=== PATIENT | female | born 1970 | race Caucasian/White ===

== ENCOUNTER 2024-06-04 16:01 | Emergency (ER) | payer BC, SELFPAY ==
[2024-06-04 16:48] VITALS: BP 134/73; PULSE 72; RESP 16; TEMP 36.8; O2SAT 94; BMI 28.3
--- NOTE | 2024-06-04 16:49 | ED_ITS ---
HPI - Eye Problem General Chief complaint: Eye Problems Stated complaint: FB in L eye Time Seen by Provider: 06/04/24 19:38 Source: patient, RN notes reviewed and old records reviewed Mode of arrival: ambulatory Limitations: no limitations History of Present Illness ED Provider: Lamar POLLARD Narrative: Patient is a 54-year-old female presenting with complaint of FB sensation to L eye since Monday afternoon. Was blowing dust off her coffee cup when sxs began. Has flushed many times without relief. Painful to touch. No contact lens use. Denies changes in vision. chief complaint: eye pain and foreign body Onset (ago): day(s) Location: left eye Eye Symptoms: pain and foreign body sensation Treatments Prior to Arrival: irrigated eye Related Data Home Medications ?Medication ?Instructions ?Recorded ?Confirmed omeprazole magnesium 20 mg 20 mg PO DAILY 12/03/21 12/03/21 tablet,delayed release (Prilosec OTC) Previous Rx's ?Medication ?Instructions ?Recorded erythromycin 5 mg/gram (0.5 %) eye 0.5 inch ophthalmic (eye) BID #3.5 06/04/24 ointment grams Allergies Allergy/AdvReac Type Severity Reaction Status Date / Time No Known Allergies Allergy Verified 06/04/24 16:50 Review of Systems Review of Systems: As per HPI Yes all other systems are reviewed and are negative Constitutional: Constitutional: Reports as per HPI [facility] Social History Social History Do you have a plan to hurt others: No Plan Physical Exam Vital Signs: Vital Signs: Last Vital Signs Temp 98.2 F 06/04/24 16:48 Pulse 72 06/04/24 16:48 Resp 16 06/04/24 16:48 BP 134/73 06/04/24 16:48 Pulse Ox 94 06/04/24 16:48 O2 Del Method Room Air 06/04/24 16:48 BMI result Body Mass Index 28.3 Vital signs have been reviewed and appear to be correct. Blood pressure normal. Heart rate normal. Respiratory rate normal. Temperature normal. Oxygen saturation normal. Const: General: cooperative, healthy appearing and no acute distress Orientation/consciousness: oriented to person, oriented to place, oriented to time and patient oriented x3 Limitations: no limitations HEENT: Head: Yes normocephalic and Yes atraumatic Ears: external ears normal General nose exam: Normal external nose present Face and sinus: Yes face symmetric Mouth: oropharynx normal and moist mucous membranes Throat: Yes uvula midline Eyes: General: appearance normal, both eyes and all related structures Visual Cuello: normal visual cuello by confrontation Corneas: corneas abnormal on the left fluorescein used and abrasion linear and at the following clock position (1200) and fluorescein used Pupils: Equal, round and reactive pupils present Neck: Neck: Yes normal visual inspection and Yes supple Resp: Effort & Inspection: normal respiratory effort and able to speak in complete sentences Auscultation: clear to auscultation bilaterally Cardio: Rate: regular rate Rhythm: regular rhythm Heart sounds: S1 normal heart sound present and S2 normal heart sound present GI: Palpation (GI): Soft to palpation and nontender Auscultation: normo active bowel sounds : General: Yes no CVA tenderness Back/Spine/Pelvis: Back: no CVA tenderness Skin: General skin exam: elasticity normal and turgor normal Neuro: General: oriented to person, oriented to place, oriented to time, patient oriented x3, moves all extremities, no focal motor deficits and CN's II- XI intact bilaterally Cranial nerves: Yes Equal, round and reactive pupils present Cognition (Neuro): normal cognition Extrem: General: Yes full ROM, Yes no pedal edema and Yes no calf tenderness Psych: Mental Status: mental status grossly normal Affect: normal affect Thought process: Normal thought process present Course Course Course Narrative: This is a rapid medical exam performed by Cece Newton NP: Additional HPI, ROS, PE not included below will be deferred to primary provider. Patient is a 54-year-old female presenting with complaint of FB sensation to L eye since Monday. Was blowing dust off her coffee cup when sxs began. Has flushed many times without relief. Painful to touch. No contact lens use. Plan: tetracaine and fluorescein ordered Medical Decision Making Medical Decision Making MDM Narrative: Patient is a 54-year-old female presenting with complaint of FB sensation to L eye since Monday. On exam patient is awake, A+Ox3, VS WNL, afebrile, normal neurological exam without focal deficits, physical exam findings as above. Given reported symptoms and physical exam findings, initial differential includes but is not limited to foreign body eye, corneal abrasion, conjunctivitis. Small abrasion noted on Uriarte lamp exam with fluorescein stain. No foreign body noted. Will send prescription for erythromycin ointment. Will refer to Dr. Castro for follow up. Return precautions discussed. Patient verbalized understanding of and agreement with plan. Differential Diagnosis Differential Diagnoses: The differential diagnosis associated with the presentation includes As per [facility] External Record Review External record reviewed: Inpatient record, Office record and Outpatient record Prescription Management I considered prescription management with: Antibiotic Discharge Plan Discharge Clinical Impression: Corneal abrasion, left Patient Disposition: Home, Self-Care Instructions: Corneal Abrasion (DC) Additional Instructions: You were evaluated in the emergency department today for an eye complaint. You are being treated for a corneal abrasion, which is a scratch to the surface of your eye, with erythromycin ointment. Use this as prescribed. Follow up with Dr. Castro for any ongoing symptoms. Return to the emergency department if you develop worsening pain, changes in vision, or any other new or concerning symptoms. Prescriptions: New erythromycin 5 mg/gram (0.5 %) ointment 0.5 inch ophthalmic (eye) BID Qty: 3.5 0RF No Action omeprazole magnesium [Prilosec OTC] 20 mg tablet,delayed release (DR/EC) 20 mg PO DAILY Referrals: Mike Castro [Physician] - Print Language: Kiswahili
[2024-06-04] MEDS: Fluorescein Sodium STRIP 1 STRIP EYE-LEFT (19:57)
--- OUTSIDE RECORDS SUMMARY | 2024-06-04 20:09 | XMS_ITS | Encounter Summary ---
Author Organization [facility] Address [address] [place] [address] Care Team Providers Care Clay House Worker Name Role Phone Keysha Holloway MD Primary Care Provider [phone] Reason for Visit * Consultation (Routine) - Authorized Specialty Diagnoses / Procedures Referred By Efrain bond Referred To Contact Physical Therapy Diagnoses Plantar fasciitis of right foot Carla Barcenas PA [address] [place] [address] Phone: tel: fax: Outpatient Rehabilitation - [address] Phone: tel: fax: Referral ID Status Reason Start Date Expiration Date Visits Requested Visits Authorized [id number] Authorized Specialty Services Required 03/06/2025 12 12 Encounter Details Date Type Department Care Team (Late st Contact Info) Description 2024 2:00 PM EST Treatment Outpatient Rehabilitation - [address] [phone] Ariane Headley PTA Plantar fasciitis of right foot (Primary Dx) Social History Tobacco Use Types Packs/Day Years Used Date Smoking Tobacco: Former Cigarettes 1 27.2 1 993 - 06/24/2019 Smokeless Tobacco: Never Comments:Former 16 to 48 1 p pd, 32 pack yr hx Alcohol Use Standard Drinks/Week Comments Yes 0 (1 standard drink = 0.6 oz pur e alcohol) 3 glasses 1-2 x per week Housing Instability Answer Date Recorde d Are you worried that in the next 2 months you may not have stable housing? No 02/28/2024 Food Access & Nutrition Answer Date Rec orded Do you have access to a vari ety of food including fruits and vegetables? Yes 02/28/2024 Health Literacy Answer Date Recorded How often do you need to hav e someone help you when you read instructions, pamphlets, or other written material from your doctor or pharmacy? Never 02/28/2024 Caregiver: How often do you need to have someone help you when you read instructions, pamphlets, or other written material from your doctor or pharmacy? Not on file 02/28/2024 Financial Risk Answer Date Recorded How hard is it for you to pa y for the very basics like food, housing, medical care, and air conditioning / heating? Not very hard 02/28/2024 Transportation Answer Date Recorded Has the lack of transportati on kept you from meetings, work, or from getting things needed for daily living? No Has the lack of transportati on kept you from medical appointments or from getting medications? No 02/28/2024 Social Isolation Answer Date Recorded How often do you feel lonely or isolated from th ose around you? Never 02/28/2024 Food Risk Answer Date Recorded Within the past 12 months we worried whether our food would run out before we got money to buy more. Never true 02/28/2024 Within the past 12 months th e food we bought just didn't last and we didn't have money to get more. Never true 02/28/2024 Dependent Care Answer Date Recorded Do you need help finding or paying for care for your loved ones. For example, professor of early childhood education or elderly care for an older adult? No 02/28/2024 Education Answer Date Recorded Do you think completing more education or training, like finishing a GED, going to college, or learning a trade, would be helpful for you? No 02/28/2024 Employment and Income Answer Date Recor ded During the last four weeks, have you been actively looking for work? No 02/28/2024 Living Situation Answer Date Recorded What is your living situation? 1 04/29/2023 Comments No Sex and Gender Information Value Date Recorded Sex Assigned at Female 04/12/2024 5:02 PM EST Legal Sex Female 11:57 PM EST Gender Identity Female 04/12/2024 5:02 PM EST Sexual Orientation Straight 04/12/2024 5: 02 PM EST documented as of this encounter Progress Notes * Ariane Headley PTA - 2024 2:00 PM EST [facility] - Outpatient PHYSICAL THERAPY DAILY TREATMENT NOTE - OP Date: 2024 Visit Number: 4 Patient Name: Anuradha Gomez : 1970 Age: 54 y.o. Gender: female Diagnosis: ICD-10-CM ICD-9-CM 1. Plantar fasciitis of right foot M72.2 728.71 Date of Onset/Surgery: No data found Referring Provider: Carla Barcenas PA Insurance: Payor: [employer] [facility] / Plan: [facility] / Product Type: *No Product type* / Patient Identified by: Ariane Headley PTA Language: Citizen Of [place] Medications: Current Outpatient Medications on File Prior to Visit Medication Sig Dispense Refill loratadine 10 mg capsule Take 1 capsule by mouth 1 (one) time each day. omeprazole (PriLOSEC) [address] capsule TAKE 1 CAPSULE BY MOUTH DAILY FOR 360 DAYS. valACYclovir (VALTREX) 500 mg tablet TAKE 1 TABLET BY MOUTH TWICE A DAY FOR 3 DAYS 6 tablet 1 No current facility-administered medications on file prior to visit. Allergies: has No Known Allergies. Precautions: Fall risk: No Patient/Caregiver Goals: SUBJECTIVE Subjective Report: In the morning the back part of my heel hurts, in the night it's more on top. When I wake up in the morning, I try to get my stretches in and that seems to be helping, but my feet are still sore. Chart Reviewed: Yes Pain No pain OBJECTIVE TREATMENT INTERVENTION: Modalities: US 1.0 wcm2 pulsed 20% x8 min to R heel Procedures: Nustep x5 min Gastroc and Soleus stretch 30 secs KAYA 3 ea KAYA Calf Raises 3x10 Manual...STM to calf and achilles on R ASSESSMENT/Response to Treatment Good Discussed POC, pt has temporary pain relief after rx sessions, reports compliance with stretching at home. Patient Education: Education provided: Yes Education Provided To: Patient utilizing Explanation and Demonstration mode(s) of education Response to Education: Applied Knowledge and Verbal Understanding PLAN POC Development/Review: No Change in the Plan of Care; Participants: Patient Total Treatment Time: 30 Modalities: Therapeutic procedures: Documentation completed by Ariane Headley PTA documented in this encounter Plan of Treatment Upcoming Encounters Date Type Department Care Team (Late st Contact Info) Description 06/05/2024 2:30 PM EST Treatment Outpatient Rehabilitation - [address] [phone] Ariane Headley PTA 06/12/2024 2:30 PM EST Treatment Outpatient [facility] - [address] [phone] Duarte Garcia PT [address] [place] [address] 09/05/2024 1:00 PM EDT Office Visit Adult Medicine [address] [phone] Keysha Holloway MD [address] [place] [address] 01/16/2025 3:30 PM EDT Appointment Radiology Department - [address] [phone] documented as of this encounter Goals Goal Patient Goal Type Associated Problems Recent Progress Patient-Stated? Author No pain General Yes Duarte Garcia PT STG 6 visits General No Duarte Garcia PT Note: Pt will report a 2/10 average pain level decrease Pt will be able to perform sit to stand and immediately begin walking after sitting for 1 hr or greater STG 12 visits General No Duarte Garcia PT Note: Pt will not ambulate with antalgic gait pattern upon waking Pt will be able to ambulate without antalgic gait pattern after sitting through a 90 min movie documented as of this encounter Visit Diagnoses Diagnosis Plantar fasciitis of right foot- Primary Encounter for screening mammogram for breast cancer documented in this encounter Additional Health Concerns Assessment Noted Time PHQ-9 Depression Total Score: 0 02/28/20 24 12:08 PM EST documented as of this encounter Care Teams Clay House Worker Relationship Specialty Start Date End Date Keysha Holloway MD [address] [place] [address] PCP - General Internal Medicine 02/25/15 documented as of this encounter
--- OUTSIDE RECORDS SUMMARY | 2024-06-04 20:09 | XMS_ITS | Encounter Summary ---
Author Organization [facility] Address [address] [place] [address] Care Team Providers Care Customs Agent Name Role Phone Keysha Holloway MD Primary Care Provider [phone] Reason for Visit * Consultation (Routine) - Authorized Specialty Diagnoses / Procedures Referred By Efrain bond Referred To Contact Physical Therapy Diagnoses Plantar fasciitis of right foot Carla Barcenas PA [address] [place] [address] Phone: tel: fax: Outpatient Rehabilitation - [address] Phone: tel: fax: Referral ID Status Reason Start Date Expiration Date Visits Requested Visits Authorized [id number] Authorized Specialty Services Required 4 03/06/2025 12 12 Encounter Details Date Type Department Care Team (Late st Contact Info) Description 05/15/2024 2:30 PM EST Treatment Outpatient Rehabilitation - [address] [phone] Ariane Headley PTA Plantar fasciitis of right [...] care for your loved ones. For example, early childhood education coordinator or elderly care for an older adult? [...] as of this encounter Progress Notes * Viri Block PTA - 05/15/2024 2:30 PM EST [facility] - Outpatient PHYSICAL THERAPY DAILY TREATMENT NOTE - OP Date: 05/15/2024 Visit Number: 6 Patient Name: Anuradha Gomez : 1970 Age: 54 y.o. Gender: female Diagnosis: ICD-10-CM ICD-9-CM 1. Plantar fasciitis of right foot M72.2 728.71 Date of Onset/Surgery: No data found Referring Provider: Carla Barcenas PA Insurance: Payor: [facility] / Plan: [facility] / Product Type: *No Product type* / Patient Identified by: Viri Block PTA Language: Pashto Medications: Current Outpatient Medications on File Prior [...] risk: No Patient/Caregiver Goals: SUBJECTIVE Subjective Report: I'm feeling pretty good. I do my stretches right before getting out of bed and Ifeel good after doing them. Chart Reviewed: Yes Pain 2/10 OBJECTIVE TREATMENT INTERVENTION: Modalities: US 1.0 Wcm2 pulsed 20% x 8 min to R heel Procedures: NuStep x 5 min Gastroc and Soleus stretch 30 secs KAYA 3 ea KAYA Calf Raises 3 x 10 Manual...STM to calf and achilles on R ASSESSMENT/Response to Treatment Good Good response to STM. Discussed night splints. Patient Education: Education provided: Yes Education Provided To: Patient utilizing Explanation and Demonstration mode(s) of education Response to Education: Applied Knowledge and Verbal Understanding PLAN POC Development/Review: No Change in the Plan of Care; Participants: Patient Total Treatment Time: 30 Modalities: Therapeutic procedures: Interventions for today's session provided by physical therapy student, Viri Block PTA. My clinical instructor, Ariane Headley PTA, was present and participatory during the delivery of care and directed all aspects of care and decision making during this session. CI has reviewed the Epic therapy documentation for 05/15/2024, and by way of cosignature, concurs with all documentation and attests to its accuracy, and to that of all associated charges. Documentation completed by Viri Block PTA Cosigned by Ariane Headley PTA at 05/15/2024 3:12 PM EST documented in this encounter Plan of Treatment Upcoming Encounters Date Type Department Care Team (Late st Contact Info) Description 06/05/2024 2:30 PM EST Treatment Outpatient Rehabilitation - [address] [phone] Ariane Headley PTA 06/12/2024 2:30 PM EST Treatment Outpatient Rehabilitation - [address] [phone] Duarte Garcia, PT [address] [place] [address] 09/05/2024 1:00 PM EDT Office Visit Adult Medicine [address] [phone] Keysha Holloway MD [address] [place] [address] 01/16/2025 3:30 PM EDT Appointment Radiology Department - [address] [phone] documented as of this encounter Goals Goal [...] documented as of this encounter Care Teams Customs Agent Relationship Specialty Start Date End Date Keysha Holloway MD [address] [place] [address] PCP - General Internal Medicine 02/25/15 documented as of this encounter
--- OUTSIDE RECORDS SUMMARY | 2024-06-04 20:09 | XMS_ITS | Encounter Summary ---
Author Organization [facility] Address [address] [place] [address] Care Team Providers Care Home Health Care Case Manager Name Role Phone Keysha Holloway MD Primary Care Provider [phone] Reason for Visit * Reason Onset Date Comments Eye Problem 06/04/2024 Encounter Details Date Type Department Care Team (Late st Contact Info) Description 06/04/2024 Nurse Triage Adult Medicine [facility] [address] [place] [phone] Keysha Holloway MD [address] [place] [address] Eye Problem Social History Tobacco Use Types Packs/Day Years [...] care for your loved ones. For example, children's ministries director or elderly care for an older adult? [...] as of this encounter Progress Notes * Hattie Jackson RN - 06/04/2024 3:06 PM EST She was instructed to go to the ER for further evaluation and treatment. She states she will go to [facility] ER. She has irrigated the eye multiple times since Monday with no improvement in her symptoms. Reason for Disposition [1] Eye has been washed out > 30 minutes ago AND [2] feels like FB is still present Answer Assessment - Initial Assessment Questions 1. TYPE OF FOREIGN BODY: What got in the eye? Dust/debris from a coffee mug 2. ONSET: When did it happen? 06/02/24 in the afternoon 3. MECHANISM: How did it happen? She states she blew dust/debris from the top of a coffee mug at [employer] when she felt an object land in her eye 4. LOCATION: Which eye, where does it seem to be located? (e.g., left, right; on cornea, under lower or upper eyelid, uncertain) Left eye mostly to right side of her eye proximal to upper lid. 4. VISION: Do you have blurred vision? No 5. PAIN: Is it painful? If Yes, ask: How bad is the pain? (Scale 0-10; or none, mild, moderate,severe) - NONE (0): No pain. - MILD (1-3): Doesn't interfere with normal activities. - MODERATE (4-7): Interferes with normal activities or awakens from sleep. - SEVERE (8-10): Excruciating pain and patient unable to do normal activities. She rates the pain as 3/10 at rest and 6/10 with palpation 6. CONTACT LENS: Do you wear contacts? No 7. OTHER SYMPTOMS: Do you have any other symptoms? (e.g., eye discharge, eye redness) She reports her eye is watery and red. 8. : Is there any chance you are ? When was your last menstrual period? No. Pt is post menopausal. 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 no If YES to any of these above symptoms, send a message to triage and do not book. Red dot. If no, an audio or video visit should be booked. Have you had close contact with someone with Coronavirus in the last 14 days? no Have you traveled abroad? no Have you traveled recently to another state outside of [place], [place], [place], [place], [place], [place], [place]? no o If yes, did you quarantine for 14 days or have a negative covid test? no If yes to any of the above, patient is not to be scheduled in office until after 14 day quarantine or negative covid test. If pain or injury related was it due to an accident at work or from a motor vehicle accident? If yes, date of accident/Injury: No If yes, gather 3rd green party insurance information Third Green Party Information: not applicable PCP: Keysha Holloway MD Payor: [facility] / Plan: [facility] / Product Type: *No Product type* / documented in this encounter Plan of Treatment Upcoming Encounters Date Type Department Care Team (Late st Contact Info) Description 06/05/2024 2:30 PM EST Treatment Outpatient [address] [phone] Ariane Headley PTA 06/12/2024 2:30 PM EST Treatment Outpatient [address] [phone] Duarte Garcia, PT [address] [place] [address] 09/05/2024 1:00 PM EDT Office Visit Adult Medicine [address] [phone] Keysha Holloway MD [address] [place] [address] 01/16/2025 3:30 PM EDT Appointment Radiology Department - [address] [phone] documented as of this encounter Goals Goal [...] documented as of this encounter Visit Diagnoses Not on filedocumented in this encounter Additional Health Concerns Assessment Noted Time PHQ-9 Depression Total Score: 0 02/28/20 24 12:08 PM EST documented as of this encounter Care Teams Home Health Care Case Manager Relationship Specialty Start Date End Date Keysha Holloway MD [address] [place] [address] PCP - General Internal Medicine 02/25/15 documented as of this encounter
--- OUTSIDE RECORDS SUMMARY | 2024-06-04 20:09 | XMS_ITS | Encounter Summary ---
Author Organization [facility] Address [address] [place] [address] Care Team Providers Care Economic Developer Name Role Phone Keysha Holloway MD Primary Care Provider [phone] Reason for Visit * Consultation (Routine) - Authorized Specialty Diagnoses / Procedures Referred By Efrain bond Referred To Contact Physical Therapy Diagnoses Plantar fasciitis of right foot Carla Barcenas PA [address] [place] [address] Phone: tel: fax: Outpatient Rehabilitation - [address] Phone: tel: fax: Referral ID Status Reason Start Date Expiration Date Visits Requested Visits Authorized [id number] Authorized Specialty Services Required 03/06/2025 12 12 Encounter Details Date Type Department Care Team (Late st Contact Info) Description 05/24/2024 8:00 AM EST Treatment Outpatient Rehabilitation - [address] [phone] Ariane Headley PTA Plantar fasciitis of right [...] care for your loved ones. For example, child care associate teacher or elderly care for an older adult? [...] Progress Notes * Viri Block PTA - 05/24/2024 8:00 AM EST [facility] - Outpatient PHYSICAL THERAPY DAILY TREATMENT NOTE - OP Date: 05/24/2024 Visit Number: 9 Patient Name: Anuradha Gomez : 1970 Age: 54 y.o. Gender: female Diagnosis: ICD-10-CM ICD-9-CM 1. Plantar fasciitis of right foot M72.2 728.71 Date of Onset/Surgery: No data found Referring Provider: Carla Barcenas PA Insurance: Payor: [facility] / Plan: [facility] / Product Type: *No Product type* / Patient Identified by: Viri Block PTA Language: Cymro Medications: Current Outpatient Medications on File Prior [...] risk: No Patient/Caregiver Goals: SUBJECTIVE Subjective Report: The splints seem to be helping. Chart Reviewed: Yes Pain 1-2/10 OBJECTIVE TREATMENT INTERVENTION: Modalities: US 3.3 Wcm2 pulsed 20% x 8 min to arch of R foot Procedures: NuStep x 5 min Gastroc and Soleus stretch 30 secs KAYA 3 ea KAYA Calf Raises 3 x 10 Single leg stance on Airex pad, 30 sec x3 KAYA Manual...STM to calf and achilles on R ASSESSMENT/Response to Treatment Good No noticeable changes with US. Pt more tolerant to night splints. Patient Education: Education provided: Yes [...] has reviewed the Epic therapy documentation for 05/24/2024, and by way of cosignature, concurs with all documentation andattests to its accuracy, and to that of all associated charges. Documentation completed by Viri Block PTA Cosigned by Ariane Headley PTA at 05/24/2024 10:21 AM EST documented in this encounter Plan of Treatment Upcoming Encounters Date Type Department Care Team (Late st Contact Info) Description 06/05/2024 2:30 PM EST Treatment Outpatient Rehabilitation - [address] [phone] Ariane Headley PTA 06/12/2024 2:30 PM EST Treatment Outpatient Rehabilitation - [address] [phone] Duarte Garcia, PT [address] [place] [address] 09/05/2024 1:00 PM EDT Office Visit Adult Medicine [facility] - [address] [phone] Keysha Holloway MD [address] [place] [address] 01/16/2025 3:30 PM EDT Appointment Radiology Department - [address] [phone] documented as of this encounter Goals Goal [...] documented as of this encounter Care Teams Economic Developer Relationship Specialty Start Date End Date Keysha Holloway MD [address] [place] [id number] PCP - General Internal Medicine 02/25/15 documented as of this encounter
--- OUTSIDE RECORDS SUMMARY | 2024-06-04 20:09 | XMS_ITS | Encounter Summary ---
Author Organization [facility] Address [address] [place] [address] Care Team Providers Care Post Office Markup Clerk Name Role Phone Keysha Holloway MD Primary Care Provider [phone] Reason for Visit * Consultation (Routine) - Authorized Specialty Diagnoses / Procedures Referred By Efrain bond Referred To Contact Physical Therapy Diagnoses Plantar fasciitis of right foot Carla Barcenas PA [address] [place] [address] Phone: tel: fax: Outpatient Rehabilitation - [address] Phone: tel: fax: Referral ID Status Reason Start Date Expiration Date Visits Requested Visits Authorized [id number] Authorized Specialty Services Required 03/06/2025 12 12 Encounter Details Date Type Department Care Team (Late st Contact Info) Description 05/28/2024 8:00 AM EST Treatment Outpatient Rehabilitation - [address] [phone] Ariane Headley PTA Plantar fasciitis of right [...] care for your loved ones. For example, childhood development teacher or elderly care for an older [...] Progress Notes * Viri Block PTA - 05/28/2024 8:[address] [facility] - Outpatient PHYSICAL THERAPY DAILY TREATMENT NOTE - OP Date: 05/28/2024 Visit Number: 10 Patient Name: Anuradha Gomez : 1970 Age: 54 y.o. Gender: female Diagnosis: ICD-10-CM ICD-9-CM 1. Plantar fasciitis of right foot M72.2 728.71 Date of Onset/Surgery: No data found Referring Provider: Carla Barcenas PA Insurance: Payor: [facility] / Plan: [facility] / Product Type: *No Product type* / Patient Identified by: Viri Block PTA Language: Luxembourgish Medications: Current Outpatient Medications on File Prior [...] No Patient/Caregiver Goals: SUBJECTIVE Subjective Report: The mornings have been better since wearing the splints. Sometimes when I wake up, the back of my heels are tender, but once I stand up for a few seconds it goes away. The stretching seems to be helping as well. Chart Reviewed: Yes Pain No pain OBJECTIVE TREATMENT INTERVENTION: Modalities: Procedures: NuStep x 5 min Gastroc and Soleus stretch 30 secs KAYA 3 ea KAYA Calf Raises 3 x 10 Single leg stance on Airex pad, 30 sec x3 KAYA Airex alt steps 2x10 Airex step off 2x10 Manual...STM to calf and achilles on R ASSESSMENT/Response to Treatment Good Held US this visit, slow progress with minor decrease in pain reported. Will decrease to 1x week until re eval. Patient Education: Education provided: Yes Education Provided [...] has reviewed the Epic therapy documentation for 05/28/2024, and by way of cosignature, concurs with all documentation andattests to its accuracy, and to that of all associated charges. Documentation completed by Viri Block PTA Cosigned by Ariane Headley PTA at 05/28/2024 9:28 AM EST documented in this encounter Plan of Treatment Upcoming Encounters Date Type Department Care Team (Late st Contact Info) Description 06/05/2024 2:30 PM EST Treatment Outpatient [address] [phone] Ariane Headley PTA 06/12/2024 2:30 PM EST Treatment Outpatient [address] [phone] Duarte Garcia, PT [address] [place] [address] 09/05/2024 1:00 PM EDT Office Visit Adult Medicine [address] [phone] Keysha Holloway MD [address] [place] [address] 01/16/2025 3:30 PM EDT Appointment Radiology Department - [address] [phone] documented as of this encounter Goals Goal [...] documented as of this encounter Care Teams Post Office Markup Clerk Relationship Specialty Start Date End Date Keysha Holloway MD [address] [place] [address] PCP - General Internal Medicine 02/25/15 documented as of this encounter
--- OUTSIDE RECORDS SUMMARY | 2024-06-04 20:09 | XMS_ITS | Encounter Summary ---
Author Organization [facility] Address [address] [place] [address] Care Team Providers Care Speech Language Pathologist Name Role Phone Keysha Holloway MD Primary Care Provider [phone] Reason for Visit * Consultation (Routine) - Authorized Specialty Diagnoses / Procedures Referred By Efrain bond Referred To Contact Physical Therapy Diagnoses Plantar fasciitis of right foot Carla Barcenas PA [address] [place] [address] Phone: tel: fax: Outpatient Rehabilitation - [address] Phone: tel: fax: Referral ID Status Reason Start Date Expiration Date Visits Requested Visits Authorized [id number] Authorized Specialty Services Required 03/06/2025 12 12 Encounter Details Date Type Department Care Team (Late st Contact Info) Description 05/22/2024 8:00 AM EST Treatment Outpatient Rehabilitation - [address] [phone] Ariane Headley PTA Plantar fasciitis of right [...] for your loved ones. For example, child life assistant or elderly care for an older adult? [...] Progress Notes * Viri Block PTA - 05/22/2024 8:00 AM EST [facility] - Outpatient PHYSICAL THERAPY DAILY TREATMENT NOTE - OP Date: 05/22/2024 Visit Number: 8 Patient Name: Anuradha Gomez : 1970 Age: 54 y.o. Gender: female Diagnosis: ICD-10-CM ICD-9-CM 1. Plantar fasciitis of right foot M72.2 728.71 Date of Onset/Surgery: No data found Referring Provider: Carla Barcenas PA Insurance: Payor: [facility] / Plan: [facility] / Product Type: *No Product type* / Patient Identified by: Viri Block PTA Language: Armenian Medications: Current Outpatient Medications on File Prior [...] risk: No Patient/Caregiver Goals: SUBJECTIVE Subjective Report: I've been wearing my splints at night, and taking them off in the middle of the night when it starts to hurt the top of my feet. Chart Reviewed: Yes Pain No pain, just tender to walk on OBJECTIVE TREATMENT INTERVENTION: Modalities: US 1.0 Wcm2 pulsed 20% x 8 min to R heel Procedures: NuStep x 5 min Gastroc and Soleus stretch 30 secs KAYA 3 ea KAYA Calf Raises 3 x 10 Single leg stance on Airex pad, 30 sec x3 KAYA Manual...STM to calf and achilles on R ASSESSMENT/Response to Treatment Good Discussed night splints, pt able to wear longer during the night. Patient Education: Education provided: Yes Education Provided [...] has reviewed the Epic therapy documentation for 05/22/2024, and by way of cosignature, concurs with all documentation andattests to its accuracy, and to that of all associated charges. Documentation completed by Viri Block PTA Cosigned by Ariane Headley PTA at 05/22/2024 10:52 AM EST documented in this encounter Plan of Treatment Upcoming Encounters Date Type Department Care Team (Late st Contact Info) Description 06/05/2024 2:30 PM EST Treatment Outpatient Rehabilitation - [address] [phone] Ariane Headley PTA 06/12/2024 2:30 PM EST Treatment Outpatient Rehabilitation - [address] [phone] Duarte Garcia, PT [address] [place] [address] 09/05/2024 1:00 PM EDT Office Visit Adult Medicine [address] [phone] Keysha Holloway MD [address] [place] [address] 01/16/2025 3:30 PM EDT Appointment Radiology Department - [place] [id number] [place] [address] documented as of this encounter Goals Goal Patient Goal Type Associated Problems Recent Progress Patient-Stated? Author No pain General Yes Duarte Garcia PT STG 6 visits General No Daurte Garcia PT Note: Pt will report a [...] documented as of this encounter Care Teams Speech Language Pathologist Relationship Specialty Start Date End Date Keysha Holloway MD [address] [place] [address] PCP - General Internal Medicine 02/25/15 documented as of this encounter
--- OUTSIDE RECORDS SUMMARY | 2024-06-04 20:09 | XMS_ITS | Clinical Summary ---
Author Organization [address] Address [address] [facility] [place] [address] Phone Care Team Providers Care Program Therapist Name Role Phone Keysha Holloway MD Primary Care Provider [phone] Allergies No known active allergies Medications omeprazole (PriLOSEC) [address] capsule TAKE 1 CAPSULE BY MOUTH DAILY FOR 360 DAYS. 12/12/2023 Active loratadine 10 mg capsule Take 1 capsule by mouth 1 (one) time each day. 07/10/2023 Active valACYclovir (VALTREX) 500 mg tablet TAKE 1 TABLET BY MOUTH TWICE A DAY FOR 3 DAYS 6 tablet 1 03/20/2024 Active Active Problems Problem Noted Date Diagnosed Date Gastroesophageal reflux dise ase with esophagitis without hemorrhage 03/06/2024 Chronic throat clearing 03/06/2024 History of colon polyps 03/06/2024 ASCUS of cervix with negative high risk HPV 10/08 Overview (01/23/2024): Per [facility], repeat cotesting in 3 years Herpes simplex 07/21/2022 Overview (01/23/2024): Recurrent, right buttocks. 09/01/23- She has no active eruption today. She is advised to send a [employer] message in to request a same-day appointment when next flare develops so that the area can be swabbed to get a more formal diagnosis of suspected HSV. She has filled antiviral medication 5 times in the last year which is rather frequent. She may benefit from daily prophylaxis. Given frequency of outbreaks she also may benefit from consultation with infectious disease versus immunology to further evaluate for possible immunosuppression. Lyme disease 09/20/2013 Encounters Date Type Department Care Team Description 06/04/2024 Nurse Triage Adult Medicine [address] [phone] Keysha Holloway MD Eye Problem 05/28/2024 8:00 AM EST Treatment Outpatient [address] [phone] Ariane Headley, [employer] Plantar fasciitis of right foot (Primary Dx) 05/24/2024 8:00 AM EST Treatment Outpatient [address] [phone] Ariane Headley, [employer] Plantar fasciitis of right foot (Primary Dx) 05/22/2024 8:00 AM EST Treatment Outpatient [address] [phone] Ariane Headley, [employer] Plantar fasciitis of right foot (Primary Dx) 05/17/2024 2:30 PM EST Treatment Outpatient [address] [phone] Ariane Headley, [employer] Plantar fasciitis of right foot (Primary Dx) 05/15/2024 2:30 PM EST Treatment Outpatient [address] [phone] Ariane Headley, [employer] Plantar fasciitis of right foot (Primary Dx) 05/10/2024 2:30 PM EST Treatment Outpatient [address] [phone] Duarte Garcia, PT Plantar fasciitis of right foot (Primary Dx) 2024 2:00 PM EST Treatment Outpatient [address] [phone] Ariane Headley, [employer] Plantar fasciitis of right foot (Primary Dx) 05/02/2024 4:00 PM EST Treatment Outpatient Rehabilitation - [address] [phone] SukhirPamelady, [employer] Plantar fasciitis of right foot (Primary Dx) 04/30/2024 2:00 PM EST Treatment Outpatient Rehabilitation [address] [phone] SukhirAriane, [employer] Plantar fasciitis of right foot (Primary Dx) 04/26/2024 2:00 PM EST Evaluation Outpatient [address] [phone] Duarte Garcia, PT Plantar fasciitis of right foot 04/16/2024 2:50 PM EST - 04/16/2024 11:59 PM EST Hospital Encounter [facility] Scan [address] [place] [phone] Encounter for screening for lung cancer; History of tobacco use Discharge Disposition: Home or Self Care 04/16/2024 2:30 PM EST Office Visit Lung Screening Program [address] [phone] Jenise Og NP Encounter for screening for malignant neoplasm of lung in former smoker who quit in past 15 years with 30 pack year history or greater (Primary Dx) 03/06/2024 3:30 PM EST Office Visit Adult Medicine [address] [phone] Carla Barcenas PA Adult general medical examination (Primary Dx); Former smoker; Need for prophylactic vaccination and inoculation against influenza; Low libido; Postmenopausal; Gastroesophageal reflux disease with esophagitis without hemorrhage; Chronic throat clearing; Plantar fasciitis of right foot; History of colon polyps from Last 3 Months Immunizations Name Administration Dates Next Due Hepatitis B (Krdjghu-N-Ktper , Recombivax HB-Adult) 19yo and older 08/05/2002,07/01/2002 Influenza Quadravalent, MDCK , 0.5ml, with preservative (Flucelvax) 6mo and older 01/09/2020,01/16/2019 Influenza trivalent, 0.5mL, preservative free (Fluarix; FluLaval; Fluzone) ages 6mo and older (Afluria) 3 years and older 05/09/2016,04/06/2015,01/27/2011 Influenza trivalent, MDCK, 0 .5mL, preservative free (Flucelvax) 6mo and older 03/06/2024 MMR, measles mumps and rubel la Live (Priorix; M-M-R II) 12mo and older 07/01/2002 Td Tetanus diptheria (Tdvax) 7yo and older 02/08 Tdap Tetanus diptheria acell ular pertussis (Boostrix; Adacel) 7yo and older 07/22/2021,08/24/2011 Zoster recombinant (Shingrix ) 19yo and older 05/11/2024 Surgical History Surgery Date Site/Laterality Comments TONSILLECTOMY PROCEDURE: HISTORICAL TONSILLECTOMY CHOLECYSTECTOMY PROCEDURE: NE LAPAROSCOPY SURG CHOLECYSTECTOMY WISDOM TOOTH EXTRACTION PROCEDURE: HISTORICAL WISDOM TEETH EXTRACTION OTHER SURGICAL HISTORY 08/01/2022 PROCEDURE: OUTSIDE ENDOSCOPY; COMMENT: Bilious gastric fluid, bile gastritis, LA grade B reflux and erosive esophagitis without bleeding UPPER GASTROINTESTINAL ENDOSCOPY 07/2022 Medical History Medical History Date Comments Acute pancreatitis DX:Acute panc reatitis; COMMENT: following ERCP - required hospitalization Herpes simplex 07/21/2022 DX:Herpes simple x; COMMENT: Recurrent, right buttocks Family History Medical History Relation Name Comments Coronary artery disease Father CHF - at age 36 Coronary artery disease Mother dece ased at age 65 Other: colostomy Sister Breast cancer Neg Hx Cancer of Small Bowel Neg Hx Colon cancer Neg Hx Kidney cancer Neg Hx Lung cancer Neg Hx Ovarian cancer Neg Hx Pancreatic cancer Neg Hx Uterine cancer Neg Hx Relation Name Status Comments Brother Alive substance issue s 4 1/2 sibs Father (Age 30,s) chf alch oholic Maternal Grandfather Maternal Grandmother Mother (Age 60,s) heart ca bg Paternal Grandfather Paternal Grandmother Sister Social History Tobacco Use Types Packs/Day Years Used Date Smoking Tobacco: Former Cigarettes 1 27.2 1 993 - 06/24/2019 Smokeless Tobacco: Never Tobacco Cessation:Counseling Given: Not Answered Comments:Former 16 to 48 1 ppd, 32 pack yr hx Alcohol Use Standard [...] care for your loved ones. For example, manager child or elderly care for an older adult? [...] Orientation Straight 04/12/2024 5: 02 PM EST Obstetrics History Last Filed Vital Signs Vital Sign Reading Time Taken Comments Blood Pressure 118/66 03/06/2024 3:21 PM EST Pulse 59 03/06/2024 3:21 PM EST Temperature 36.7 ??C (98.1 ??F) 04/16/2024 2:43 PM ES T Respiratory Rate 13 03/06/2024 3:21 PM EST Oxygen Saturation - - Inhaled Oxygen Concentration - - Weight 77.2 kg (170 lb 3.2 oz) 03/06/2024 3:21 P M EST Height 162.6 cm (5' 4 ) 03/06/2024 3:21 PM EST Body Mass Index 29.21 03/06/2024 3:21 PM EST Plan of Treatment Upcoming Encounters Date Type Department Care Team (Late st Contact Info) Description 06/05/2024 2:30 PM EST Treatment Outpatient Rehabilitation - [address] [phone] Ariane Headley PTA 06/12/2024 2:30 PM EST Treatment Outpatient Rehabilitation - [address] [phone] Duarte Garcia, PT [address] [place] [address] 09/05/2024 1:00 PM EDT Office Visit Adult Medicine [facility] - [address] [phone] Keysha Holloway MD [address] [place] [address] 01/16/2025 3:30 PM EDT Appointment Radiology Department - [address] [phone] Health Maintenance Due Date Last Done Comments Hepatitis B Vaccines (3 of 3 - 19+ 3-dose series) 01/01/2003 08/05/2002, 07/01/2002 Pneumococcal Vaccine: 50+ Years (1 of 1 - PCV) 2021 Hepatitis C Screening 03/20/2022 Depression Screening 02/27/2025 02/28/2024 Social Influencers of Health Screening 02/27/2025 02/28/2024 Lung Cancer Screening (Low Dose CT) 04/16/2025 04/16/2024 Colorectal Cancer Screening: Colonoscopy 08/01/2025 08/01/2022 Breast Cancer Screening 01/01/2026 01/02/20, 01/02/2024, 12/28/2022, Additional history exists Cervical Cancer Screening: HPV 10/13/2027 10/12/2022 Cholesterol Screening (Lipid Panel) 03/26/2029 03/26/2024, 07/01/2019 DTaP,Tdap,and Td Vaccines (4 - Td or Tdap) 07/23/2031 07/22/2021, 08/24/2011, 02/08/2006 MMR Vaccines Aged Out 07/01/2002 No longer eligi ble based on patient's age to complete this topic HIV Screening Completed 02/18/2011 COVID-19 Vaccine Completed 02/03/2024, , 05/16/2020 Influenza Vaccine Completed 03/06/2024, , 01/16/2019, Additional history exists Zoster Vaccines Completed 05/11/2024, 02/03/2024 HIB Vaccines Aged Out No longer eligi ble based on patient's age to complete this topic HPV Vaccines Aged Out No longer eligi ble based on patient's age to complete this topic Hepatitis A Vaccines Aged Out No long er eligible based on patient's age to complete this topic IPV Vaccines Aged Out No longer eligi ble based on patient's age to complete this topic Meningococcal ACWY Vaccine Aged Out N o longer eligible based on patient's age to complete this topic Meningococcal B Vacine Aged Out No lo nger eligible based on patient's age to complete this topic Pneumococcal Vaccine: Pediatrics (0 to 5 Years) and At-Risk Patients (6 to 64 Years) Aged Out No longer eligible based on patient's age to complete this topic RSV Immunization Patients Under 20 months Aged Out No longer eligible based on patient's age to complete this topic Varicella Vaccines Aged Out No longer eligible based on patient's age to complete this topic Goals Goal Patient Goal Type Associated Problems [...] after sitting through a 90 min movie Procedures Procedure Name Priority Date/Time Associated Diagnosis Comments CT LUNG SCREENING Routine 04/16/2024 3:0 0 PM EST Encounter for screening for lung cancer History of tobacco use HEMOGLOBIN A1C Routine 04/08/2024 8:29 AM EST Elevated fasting glucose CBC WITH AUTO DIFFERENTIAL Routine 03/26/2024 7:50 AM EST Adult general medical examination THYROID STIMULATING HORMONE WITH REFLEX TO FREE T4 AND FREE T3 Routine 03/26/2024 7:50 AM EST Adult general medical examination Low libido Postmenopausal LIPID PANEL WITH REFLEX TO DIRECT LDL Routine 03/26/2024 7:50 AM EST Adult general medical examination COMPREHENSIVE METABOLIC PANEL Routine 03/26/2024 7:50 AM EST Adult general medical examination CBC AND DIFFERENTIAL Routine 03/26/2024 7:50 AM EST Adult general medical examination SCREENING MAMMOGRAPHY BI 2-VIEW BREAST INC CAD Routine 01/02/2024 4:11 PM EDT Encounter for screening mammogram for malignant neoplasm of breast HPV Routine 10/12/2022 COLONOSCOPY Routine 08/01/2022 HIV SCREENING Routine 02/18/2011 from Last 3 Months or Most Recently Relevant to Health Maintenance Results * CT Lung Screening (04/16/2024 3:00 PM EST) Anatomical Region Laterality Modality Chest Computed Tomogra phy 04/24/2024 9:55 AM EST Impressions 04/24/2024 10:06 AM EST 1 mm right apical pulmonary nodule. Lung RADS 2, recommend low-dose screening chest CT in 12 months -------- FINAL REPORT -------- Dictated By: Malissa Arredondo Dictated Date: 04/24/2024 09:55 ET Assigned Physician: Malissa Arredondo Reviewed and Electronically Signed By: Malissa Arredondo Signed Date: 04/24/2024 10:06 ET Workstation ID: [id number] Transcribed By: Self Edit Transcribed Date: 04/24/2024 09:55 ET Narrative 04/24/2024 10:06 AM EST INDICATION: Quit smoking 4 years ago with 32 pack-year smoking history FINDINGS: Low-dose CT scan of the chest obtained as a lung cancer screening study. Scanner: Glassbeamer 128 slice VCT Dose reduction technique: ASIR (Adaptive statistical iterative reconstruction) and/or AEC (automated exposure control) Dose: total exam DLP 158 mGY per cm COMPARISON: No prior studies are available for comparison. Lung: No infiltrates or effusions. Mild atelectasis/scarring within lingula and medial aspect of the right middle lobe. 1 mm right apical pulmonary nodule on series 3 image 33. Lymph nodes: No thoracic lymphadenopathy. Mediastinum: Trachea and esophagus are within normal limits. Heart normal in size and shape without pericardial effusion. Mediastinal vascular structures are normal in course and caliber. Bony structures: Within normal limits for the patient's age. Procedure Note Malissa Arredondo MD - 04/24/2024 INDICATION: Quit smoking 4 years ago with 32 pack-year smoking history FINDINGS: Low-dose CT scan of the chest obtained as a lung cancerscreening study. Scanner: Glassbeamer 128 slice VCT Dose reduction technique: ASIR (Adaptive statistical iterativereconstruction) and/or AEC (automated exposure control) Dose: total exam DLP 158 mGY per cm COMPARISON: No prior studies are available for comparison. Lung: No infiltrates or effusions. Mild atelectasis/scarring withinlingula and medial aspect of the right middle lobe. 1 mm right apical pulmonary nodule on series 3 image 33. Lymph nodes: No thoracic lymphadenopathy. Mediastinum: Trachea and esophagus are within normal limits. Heart normalin size and shape without pericardial effusion. Mediastinal vascularstructures are normal in course and caliber. Bony structures: Within normal limits for the patient's age. IMPRESSION: 1 mm right apical pulmonary nodule. Lung RADS 2, recommend low-dose screening chest CT in 12 months -------- FINAL REPORT -------- Dictated By: Malissa Arredondo Dictated Date: 04/24/2024 09:55 ET Assigned Physician: Malissa Arredondo Reviewed and Electronically Signed By: Malissa Arredondo Signed Date: 04/24/2024 10:06 ET Workstation ID: [id number] Transcribed By: Self Edit Transcribed Date: 04/24/2024 09:55 ET us Darya Kumar MD [facility] PROCEDURES Final Result * Hemoglobin A1c (04/08/2024 8:29 AM EST) Hemoglobin A1C 5.6 <6.5 % LAB CHEMISTRY METHOD 04/08/2024 11:29 AM EST [facility] Mean Bld Glu Estim. 114 mg/dL LAB CHEMISTRY METHOD 04/08/2024 11:29 AM EST [facility] Blood Venous blood specimen / Unknown Venipuncture / Unknown 04/08/2024 8:29 AM EST 04/08/2024 8:29 AM EST us Carla COTTRELL LAB BLOOD ORDERABLES Final Resul t [facility] [address] [place] [address], [place] [phone] * Thyroid stimulating hormone with reflex to free t4 and free t3 (03/26/2024 7:50 AM EST) TSH 3.19 0.40 - 4.00 mcIU/mL LAB CHEMISTRY METHOD 03/26/2024 10:48 AM EST [facility] Blood Venous blood specimen / Unknown Venipuncture / Unknown 03/26/2024 7:50 AM EST 03/26/2024 7:50 AM EST Carla COTTRELL LAB BLOOD ORDERABLES Final Resul t [facility] [address] [place] [address], [place] [phone] * (ABNORMAL) Lipid panel with reflex to direct LDL (03/26/2024 7:50 AM EST) Cholesterol 224(H) 0 - 200 mg/dL LAB CHEMISTRY METHOD 03/26/2024 10:45 AM EST [facility] Triglycerides 163(H) 0 - 150 mg/dL LAB CHEMISTRY METHOD 03/26/2024 10:45 AM [facility] HDL 57 >=40 mg/dL LAB CHEMISTRY METHOD 03/26/2024 10:45 AM [facility] LDL Calculated 134(H) 0 - 100 mg/dL LAB CHEMISTRY METHOD 03/26/2024 10:45 AM EST [facility] VLDL Cholesterol Marco A 32.6 mg/dL LAB CHEMISTRY METHOD 03/26/2024 10:45 AM EST [facility] Non HDL Chol. (LDL+VLDL) 167(H) <145 mg/dL LAB CHEMISTRY METHOD 03/26/2024 10:45 AM EST [facility] Chol/HDL Ratio 3.9 0.0 - 4.4 LAB CHEMISTRY METHOD 03/26/2024 10:45 AM [facility] Blood Venous blood specimen / Unknown Venipuncture / Unknown 03/26/2024 7:50 AM EST 03/26/2024 7:50 AM EST us Carla COTTRELL LAB BLOOD ORDERABLES Final Resul t [facility] [address] [place] [address], * (ABNORMAL) CBC auto differential (03/26/2024 7:50 AM EST) WBC 6.1 4.8 - 10.8 K/mcL LAB HEMETOLOGY METHOD 03/26/2024 10:31 AM [facility] RBC 5.10(H) 3.80 - 4.80 M/mcL LAB HEMETOLOGY METHOD 03/26/2024 10:31 AM [facility] Hemoglobin 15.2 11.5 - 16.0 g/dL LAB HEMETOLOGY METHOD 03/26/2024 10:31 AM [facility] Hematocrit 45.7 35.0 - 47.0 % LAB HEMETOLOGY METHOD 03/26/2024 10:31 AM [facility] MCV 90.5 79.0 - 98.0 FL LAB HEMETOLOGY METHOD 03/26/2024 10:31 AM [facility] MCH 30.1 27.0 - 32.0 pcg LAB HEMETOLOGY METHOD 03/26/2024 10:31 AM [facility] MCHC 33.3 32.0 - 37.0 g/dL LAB HEMETOLOGY METHOD 03/26/2024 10:31 AM [facility] RDW 12.7 11.0 - 15.0 % LAB HEMETOLOGY METHOD 03/26/2024 10:31 AM [facility] Platelets 393 130 - 400 K/mcL LAB HEMETOLOGY METHOD 03/26/2024 10:31 AM [facility] MPV 10.2 7.0 - 11.0 FL LAB HEMETOLOGY METHOD 03/26/2024 10:31 AM [facility] NRBC 0.0 <1.0 % LAB HEMETOLOGY METHOD 03/26/2024 10:31 AM [facility] NRBC Absolute 0.00 <0.10 K/mcL LAB HEMETOLOGY METHOD 03/26/2024 10:31 AM [facility] Neutrophils Relative 47.6 % LAB HEMETOLOGY METHOD 03/26/2024 10:31 AM [facility] Lymphocytes Relative 34.5 % LAB HEMETOLOGY METHOD 03/26/2024 10:31 AM [facility] Monocytes Relative 11.8 % LAB HEMETOLOGY METHOD 03/26/2024 10:31 AM [facility] Eosinophils Relative 4.7 % LAB HEMETOLOGY METHOD 03/26/2024 10:31 AM [facility] Basophils Relative 1.1 % LAB HEMETOLOGY METHOD 03/26/2024 10:31 AM [facility] Immature Granulocytes Relative 0.3 % LAB HEMETOLOGY METHOD 03/26/2024 10:31 AM [facility] Neutrophils Absolute 2.91 1.50 - 7.00 K/mcL LAB HEMETOLOGY METHOD 03/26/2024 10:31 AM [facility] Lymphocytes Absolute 2.11 1.00 - 5.00 K/mcL LAB HEMETOLOGY METHOD 03/26/2024 10:31 AM [facility] Monocytes Absolute 0.72 0.20 - 1.00 K/mcL LAB HEMETOLOGY METHOD 03/26/2024 10:31 AM [facility] Eosinophils Absolute 0.29 0.00 - 0.50 K/mcL LAB HEMETOLOGY METHOD 03/26/2024 10:31 AM EST [facility] Basophils Absolute 0.07 0.00 - 0.20 K/[facility] LAB HEMETOLOGY METHOD 03/26/2024 10:31 AM EST [facility] Immature Granulocytes Absolute 0.02 0.00 - 0.03 K/[facility] LAB HEMETOLOGY METHOD 03/26/2024 10:31 AM EST [facility] Blood Venous blood specimen / Unknown Venipuncture / Unknown 03/26/2024 7:50 AM EST 03/26/2024 7:50 AM EST us Carla COTTRELL LAB BLOOD ORDERABLES Final Resul t [facility] [address] [place] [address], * (ABNORMAL) Comprehensive metabolic panel (03/26/2024 7:50 AM EST) Sodium 142 133 - 145 mmol/L LAB CHEMISTRY METHOD 03/26/2024 10:45 AM [facility] Potassium 4.1 3.5 - 5.5 mmol/L LAB CHEMISTRY METHOD 03/26/2024 10:45 AM [facility] Chloride 109 96 - 110 mmol/L LAB CHEMISTRY METHOD 03/26/2024 10:45 AM [facility] CO2 28 21 - 32 mmol/L LAB CHEMISTRY METHOD 03/26/2024 10:45 AM [facility] Anion Gap 5 3 - 11 LAB CHEMISTRY METHOD 03/26/2024 10:45 AM [facility] Glucose 107(H) 70 - 100 mg/dL LAB CHEMISTRY METHOD 03/26/2024 10:45 AM [facility] BUN 15 5 - 25 mg/dL LAB CHEMISTRY METHOD 03/26/2024 10:45 AM [facility] Creatinine 0.78 0.50 - 1.10 mg/dL LAB CHEMISTRY METHOD 03/26/2024 10:45 AM [facility] eGFR 92 >=60 mL/min/1. 73m2 LAB CHEMISTRY METHOD 03/26/2024 10:45 AM [facility] Comment:Calculation based on the??Chronic Kidney Disease Epidemiology Collaboration (CKD-EPI) equation refit??without adjustment for race. BUN/Creatinine Ratio 19.2 LAB CHEMISTRY METHOD 03/26/2024 10:45 AM [facility] Calcium 10.0 8.5 - 10.5 mg/dL LAB CHEMISTRY METHOD 03/26/2024 10:45 AM [facility] AST (SGOT) 34 10 - 42 unit/L LAB CHEMISTRY METHOD 03/26/2024 10:45 AM [facility] ALT (SGPT) 67(H) 10 - 60 unit/L LAB CHEMISTRY METHOD 03/26/2024 10:45 AM [facility] Alkaline Phosphatase 110 42 - 121 unit/L LAB CHEMISTRY METHOD 03/26/2024 10:45 AM [facility] Total Protein 6.8 6.0 - 8.0 g/dL LAB CHEMISTRY METHOD 03/26/2024 10:45 AM [facility] Albumin 4.1 3.2 - 5.0 g/dL LAB CHEMISTRY METHOD 03/26/2024 10:45 AM [facility] Total Bilirubin 1.4 0.0 - 1.4 mg/dL LAB CHEMISTRY METHOD 03/26/2024 10:45 AM [facility] Blood Venous blood specimen / Unknown Venipuncture / Unknown 03/26/2024 7:50 AM EST 03/26/2024 7:50 AM EST us Carla COTTRELL LAB BLOOD ORDERABLES Final Resul t [facility] [address] [place] [address], * SCREENING MAMMOGRAPHY BI 2-VIEW BREAST INC CAD (01/02/2024 4:11 PM EDT) Anatomical Region Laterality Modality Radiographic Sabina ging 12/28/2022 6:26 PM EDT Narrative 01/03/2024 12:54 PM EDT This is a summary report. The complete report is available in the patient's medical record. If you cannot access the medical record, please contact the sending organization for a detailed fax or copy. BILATERAL 3D DIGITAL SCREENING MAMMOGRAM History: Routine screening. ??No current breast complaints. ?? Comparison: Multiple priors dating back to 12/27/2021 Technique: Bilateral full-field digital 3D mammography was performed using standard CC and MLO projections CAD was used to evaluate this mammogram. Findings: Density: ??There are scattered areas of fibroglandular density-B RIGHT: No suspicious masses, groups of microcalcification or areas of architectural distortion identified. Stable typically benign parenchymal asymmetries LEFT: No suspicious masses, groups of microcalcifications or areas of architectural distortion identified. Stable typically benign parenchymal asymmetries IMPRESSION: : 1. ??No mammographic evidence of malignancy. BI-RADS Category 2 benign findings Recommendation: Routine annual screening mammography is recommended [facility] [address] [place] [id number] Procedure Note Denise Alcala MD - 01/24/2024 This is a summary report. The complete report is available in thepatient's medical record. If you cannot access the medical record, pleasecontact the sending organization for a detailed fax or copy. BILATERAL 3D DIGITAL SCREENING MAMMOGRAM History: Routine screening. No current breast complaints. Comparison: Multiple priors dating back to 12/27/2021 Technique: Bilateral full-field digital 3D mammography was performed usingstandard CC and MLO projections CAD was used to evaluate this mammogram. Findings: Density: There are scattered areas of fibroglandular density-B RIGHT: No suspicious masses, groups of microcalcification or areas ofarchitectural distortion identified. Stable typically benign parenchymalasymmetries LEFT: No suspicious masses, groups of microcalcifications or areas ofarchitectural distortion identified. Stable typically benign parenchymalasymmetries IMPRESSION: : 1. No mammographic evidence of malignancy. BI-RADS Category 2 benign findings Recommendation: Routine annual screening mammography is recommended [facility] [address], [place] [id number] Trini Rose CNM IMG XR PROCEDURES Final Res ult * Cervical Cancer Screening: HPV (10/12/2022) [facility] Cervical Cancer Screening: HPV negative,a bstracted Historical Provider HEALTH MAINTENANCE Final Result * Colonoscopy (08/01/2022) [facility] Colonoscopy no interpreta tion,abstr acted Anatomical Region Laterality Modality Other [facility] Provider HEALTH MAINTENANCE Final Result * HIV Screening (02/18/2011) [facility] HIV Screening abstracted [facility] Provider HEALTH MAINTENANCE Final Result from Last 3 Months or Most Recently Relevant to Health Maintenance Insurance Care Teams Program Therapist Relationship Specialty Start Date End Date Keysha Holloway MD [address] [place] [id number] PCP - General Internal Medicine 02/25/15
--- OUTSIDE RECORDS SUMMARY | 2024-06-04 20:09 | XMS_ITS | Encounter Summary ---
Author Organization [facility] Address [address] [place] [address] Care Team Providers Care Long Distance Operator Name Role Phone Keysha Holloway MD Primary Care Provider [phone] Reason for Visit * Consultation (Routine) - Authorized Specialty Diagnoses / Procedures Referred By Efrain bond Referred To Contact Physical Therapy Diagnoses Plantar fasciitis of right foot Carla Barcenas PA [address] [place] [id number] Phone: tel: fax: Outpatient Rehabilitation - [address] Phone: tel: fax: Referral ID Status Reason Start Date Expiration Date Visits Requested Visits Authorized [id number] Authorized Specialty Services Required 4 03/06/2025 12 12 Encounter Details Date Type Department Care Team (Late st Contact Info) Description 05/17/2024 2:30 PM EST Treatment Outpatient Rehabilitation - [address] [phone] Ariane Headley PTA Plantar fasciitis of right [...] for your loved ones. For example, children's counselor or elderly care for an older adult? [...] Progress Notes * Viri Block PTA - 05/17/2024 2:30 PM EST [facility] - Outpatient PHYSICAL THERAPY DAILY TREATMENT NOTE - OP Date: 05/17/2024 Visit Number: 7 Patient Name: Anuradha Gomez : 1970 Age: 54 y.o. Gender: female Diagnosis: ICD-10-CM ICD-9-CM 1. Plantar fasciitis of right foot M72.2 728.71 Date of Onset/Surgery: No data found Referring Provider: Carla Barcenas PA Insurance: Payor: [facility] / [facility] / Product Type: *No Product type* / Patient Identified by: Viri Block PTA Language: Greek Medications: Current Outpatient Medications on File Prior [...] risk: No Patient/Caregiver Goals: SUBJECTIVE Subjective Report: I wore my night splints last night, but the metal plate was hurting the top of my foot, I had to take them off about 3am. Chart Reviewed: Yes Pain No pain OBJECTIVE TREATMENT INTERVENTION: Modalities: US 1.0 Wcm2 pulsed 20% x 8 min to R heel Procedures: NuStep x 5 min Gastroc and Soleus stretch 30 secs KAYA 3 ea KAYA Calf Raises 3 x 10 Single leg stance on Airex pad, 30 sec x3 KAYA Manual...STM to calf and achilles on R ASSESSMENT/Response to Treatment Good Pt brought in night splints, educated in wearing. Patient Education: Education provided: Yes Education Provided [...] has reviewed the Epic therapy documentation for 05/17/2024, and by way of cosignature, concurs with all documentation and attests to its accuracy, and to that of all associated charges. Documentation completed by Viri Block PTA Cosigned by Ariane Headley PTA at 05/17/2024 3:50 PM EST documented in this encounter Plan of Treatment Upcoming Encounters Date Type Department Care Team (Late st Contact Info) Description 06/05/2024 2:30 PM EST Treatment Outpatient Rehabilitation - [address] [phone] Ariane Headley PTA 06/12/2024 2:30 PM EST Treatment Outpatient Rehabilitation - [address] [phone] Duarte Garcia, PT [address] [place] [address] 09/05/2024 1:00 PM EDT Office Visit Adult Medicine [facility] - [address] [phone] Keysha Holloway MD [address] [place] [address] 01/16/2025 3:30 PM EDT Appointment Radiology Department - [address] [place] [address] documented as of this encounter Goals Goal [...] documented as of this encounter Care Teams Long Distance Operator Relationship Specialty Start Date End Date Keysha Holloway MD [address] [place] [address] PCP - General Internal Medicine 02/25/15 documented as of this encounter
--- OUTSIDE RECORDS SUMMARY | 2024-06-04 20:09 | XMS_ITS | Encounter Summary ---
Author Organization [facility] Address [address] [place] [address] Care Team Providers Care Hebrew Professor Name Role Phone Keysha Holloway MD Primary Care Provider [phone] Reason for Visit * Consultation (Routine) - Authorized Specialty Diagnoses / Procedures Referred By Efrain bond Referred To Contact Physical Therapy Diagnoses Plantar fasciitis of right foot Carla Barcenas PA [address] [place] [address] Phone: tel: fax: Outpatient Rehabilitation - [address] Phone: tel: fax: Referral ID Status Reason Start Date Expiration Date Visits Requested Visits Authorized [id number] Authorized Specialty Services Required 4 03/06/2025 12 12 Encounter Details Date Type Department Care Team (Late st Contact Info) Description 05/10/2024 2:30 PM EST Treatment Outpatient Rehabilitation - [address] [phone] Duarte Garcia, PT [address] [place] [address] Plantar fasciitis of right foot (Primary Dx) [...] your loved ones. For example, early childhood teacher assistant or elderly care for an older [...] as of this encounter Progress Notes * Duarte Garcia PT - 05/10/2024 2:30 PM EST [facility] - Outpatient PHYSICAL THERAPY DAILY TREATMENT NOTE - OP Date: 05/10/2024 Visit Number: 5 Patient Name: Anuradha Gomez : 1970 Age: 54 y.o. Gender: female Diagnosis: ICD-10-CM ICD-9-CM 1. Plantar fasciitis of right foot M72.2 728.71 Date of Onset/Surgery: No data found Referring Provider: Carla Barcenas PA Insurance: Payor: [employer] [facility] / Plan: [facility] / Product Type: *No Product type* / Patient Identified by: Duarte Garcia PT Language: Turkish Medications: Current Outpatient Medications on File Prior [...] risk: No Patient/Caregiver Goals: SUBJECTIVE Subjective Report: Pt reports pain persists, particularly after NWB-->after [address]=2/10. Chart Reviewed: Yes Pain 2/10 OBJECTIVE TREATMENT INTERVENTION: Modalities: US 1.0 Wcm2 pulsed 20% x 8 min to R heel Procedures: NuStep x 5 min Gastroc and Soleus stretch 30 secs KAYA 3 ea KAYA Calf Raises 3 x 10 Discussed night splint, including the theory behind it. ASSESSMENT/Response to Treatment Good No C/O increased pain. Patient Education: Education provided: Yes Education Provided To: Patient utilizing Explanation and Demonstration mode(s) of education Response to Education: Applied Knowledge and Verbal Understanding PLAN POC Development/Review: No Change in the Plan of Care; Participants: Patient Total Treatment Time: 30 Modalities: Ultrasound Time Entry: 8 Therapeutic procedures: Therapeutic Exercise Time Entry: 22 Documentation completed by Duarte Garcia PT documented in this encounter Plan of Treatment Upcoming Encounters Date Type Department Care Team (Late st Contact Info) Description 06/05/2024 2:30 PM EST Treatment Outpatient Rehabilitation - [address] [phone] Ariane Headley PTA 06/12/2024 2:30 PM EST Treatment Outpatient [facility] - [address] [phone] Duarte Garcia PT [address] [place] [address] 09/05/2024 1:00 PM EDT Office Visit Adult Medicine [address] [phone] Keysha Holloway MD [address] [place] [address] 01/16/2025 3:30 PM EDT Appointment Radiology Department - [address] [phone] documented as of this encounter Goals Goal [...] documented as of this encounter Care Teams Hebrew Professor Relationship Specialty Start Date End Date Keysha Holloway MD [address] [place] [address] PCP - General Internal Medicine 02/25/15 documented as of this encounter
[2024-06-04 20:26] VITALS: BP 134/73; PULSE 72; RESP 16; TEMP 36.8; O2SAT 94
== END 2024-06-04 20:27 | disposition home or self-care (01) ==
PROVIDERS: Emergency Provider Student in an Organized Health Care Education/Training Program; PCP Internal Medicine
DX: S05.02XA Injury of conjunctiva and corneal abrasion without foreign body, left eye, initial encounter (principal); X58.XXXA Exposure to other specified factors, initial encounter; Y93.9 Activity, unspecified; Y92.9 Unspecified place or not applicable; Y99.8 Other external cause status
CPT/HCPCS: 99282; 99283